=== PATIENT | male | born 1950 | race Caucasian/White ===

== ENCOUNTER → 2019-02-16 | Outpatient (CLI) | payer OTHER | LOC: LABWHC1 07:27 | PROVIDERS: ATTEND Physical Medicine & Rehabilitation | DX: Z01.812 Encounter for preprocedural laboratory examination (principal); N28.9 Disorder of kidney and ureter, unspecified | CPT/HCPCS: 36415; 82565; 84520 ==

== ENCOUNTER → 2020-12-10 | Outpatient (CLI) | payer OTHER ==
[2020-12-10 08:02] VITALS: BP 192/82; PULSE 69; RESP 18; TEMP 97.8
--- NOTE | 2020-12-10 08:25 | P.CONS ---
History of Present Illness - Reason for Consult Consult date: 12/10/20 - Chief Complaint Lower back and legs pain - History of Present Illness This is a 70-year-old gentleman with history of low back surgeries the last one was done about 6 years ago. The patient has chronic lower back pain with radiation to the lower extremities bilaterally more on the right side than the left side down to the feet bilaterally. He also occasionally. Tingling in both feet. The pain occasionally wakes him up at night but he denies any weight loss. He also denies any bowel or bladder dysfunction or any weakness in the lower extremities. Toes his pain as deep in quality. His back pain is more intense than his legs pain. The patient uses [id number] medications for his pain and marijuana at night to help him sleep. He used to be on morphine previously however he stopped using opioids. He also stopped using Neurontin. The patient used to get back injections by Dr. Cheung. The injections he was getting according to his records from Dr. Cheung's office include transforaminal epidural steroid injection at right L3 and left L2 at the same time in one session. The patient is retired and he lives with his . Past Medical History Past Medical History: Hypertension, Sleep Apnea/CPAP/BIPAP Additional Past Medical History / Comment(s): LOW BACK PAIN WITH RADIATION TO LEGS & FEET, HX OF SLEEP APNEA (SURGERY) History of Any Multi-Drug Resistant Organisms: None Reported Past Surgical History: Back Surgery, Orthopedic Surgery Additional Past Surgical History / Comment(s): ARTHROSCOPY KNEE, SLEEP APNEA SURGERY, BACK SURGERY X4 (2X @[facility], & 2X AT [facility]) Past Anesthesia/Blood Transfusion Reactions: No Reported Reaction Past Psychological History: No Psychological Hx Reported Smoking Status: Former smoker Past Alcohol Use History: None Reported Past Drug Use History: Marijuana Additional Drug Use History / Comment(s): SMOKES MARIJUANA AT FOR PAIN . - Past Family History Sister(s) Family Medical History: Cancer Medications and Allergies Home Medications Medication Instructions Recorded Confirmed Type Nabumetone [Relafen] 1,000 mg PO BID 12/03/20 12/10/20 History amLODIPine BESYLATE 5 mg PO DAILY 12/03/20 12/10/20 History atenoloL [Atenolol] 25 mg PO DAILY 12/03/20 12/10/20 History Allergies Allergy/AdvReac Type Severity Reaction Status Date / Time No Known Allergies Allergy Verified 12/03/20 15:06 Physical Exam Vitals: Vital Signs Temp Pulse Resp BP Pulse Ox 12/10/20 07:57 97.8 F 69 18 192/82 99 - Constitutional General appearance: average body habitus - EENT Eyes: PERRLA - Neurologic Neuro exam of the lower extremities showed normal and symmetrical muscle strength, normal and symmetrical knee reflexes, absent ankle reflexes bilaterally. Straight leg raising test negative bilaterally Kyree's test positive on the right side Positive tenderness in the lumbar paravertebral musculature around and above his previous scar tissue from back surgeries Decreased range of motion of the lumbar spine especially for flexion Internal and external rotation of the hip joints did not elicit any pain. Neurologic: CNII-XII intact - Psychiatric Psychiatric: A&O x's 3, appropriate affect, intact judgment & insight Results Results: His last lumbar spine MRI which was done in 2019 showed spondylolisthesis at L2- 3 and L4 5 plus central canal stenosis and possible compression of left L3 nerve root. Assessment and Plan Plan: This is a 70-year-old gentleman with history of chronic lower back pain with radiation to the lower extremity down to the feet. The patient had 4 back surgeries. The following are possible diagnoses: Lumbar postlaminectomy syndrome Lumbar DDD Lumbar stenosis Occasional marijuana use The patient used to get transforaminal epidural steroid injection bilaterally by Dr. Cheung and he used to get very good response to these injections. I will schedule the patient to have transforaminal epidural steroid injection at the right L3 and left L2 transforaminal epidurals which corresponds to the right L3 4 and the left L2-L3 levels. The procedure was explained to the patient and his questions were answered. I asked her to do caudal epidural steroid injection to the patient however he preferred to do the same injections that he used to get from Dr. Skye coronel of their proved results. I thank you for the referral
== END | disposition home or self-care (01) ==
LOC: PNWHC3 07:47
PROVIDERS: ATTEND Anesthesiology
DX: M48.061 Spinal stenosis, lumbar region without neurogenic claudication (principal); M51.36 Other intervertebral disc degeneration, lumbar region; M96.1 Postlaminectomy syndrome, not elsewhere classified; F12.90 Cannabis use, unspecified, uncomplicated; Z79.1 Long term (current) use of non-steroidal anti-inflammatories (NSAID); Z79.899 Other long term (current) drug therapy; Z87.891 Personal history of nicotine dependence
CPT/HCPCS: 99202

== ENCOUNTER 2020-12-27 07:01 | Day surgery (SDC) | payer OTHER ==
[2020-12-25 09:06] VITALS: BMI 28.3
[2020-12-27 07:26] VITALS: TEMP 97.5
[2020-12-27] MEDS ORDERED: LIDOCAINE 1% (10MG/ML) FOR IV START IV ONE (07:29)
[2020-12-27] MEDS ORDERED: LACTATED RINGERS 1,000 ML IV SCH (07:30)
[2020-12-27] MEDS ORDERED: DEXAMETHASONE SOD PHOSPHATE 10 MG/ML 1 ML VIAL ONE (07:31)
[2020-12-27] MEDS ORDERED: MIDAZOLAM 2 MG/2 ML VIAL ONE (07:31)
[2020-12-27] MEDS ORDERED: fentaNYL (PF) 50 MCG/ML 2 ML AMP ONE (07:31)
[2020-12-27] MEDS ORDERED: IOPAMIDOL M200 10 ML VIAL ONE (07:31)
--- NOTE | 2020-12-27 07:47 | P.PCN ---
Date of Procedure: 12/27/20 Description of Procedure: PREOPERATIVE DIAGNOSIS: Lumbar radiculopathy POSTOPERATIVE DIAGNOSIS: Lumbar radiculopathy PROCEDURE 1. Transforaminal epidural steroid injection under fluoroscopic guidance at the right L3 4, left L2-3 2. Lumbar epidurogram IMAGING Fluoroscopy was used, images where saved to the medical record ANESTHESIA: Local with 1% lidocaine 5 ml ; 2 mg of Versed 100 g of fentanyl PROCEDURE DESCRIPTION / TECHNIQUE: The patient was seen and identified in the preoperative area. Risks, benefits, complications, and alternatives were discussed with the patient. The patient agreed to proceed with the procedure and signed the consent, vital signs were stable prior to the procedure. Patient was taken to the OR and time out was completed. The patient was placed in the prone position on procedure table and a pillow was placed under the abdomen to reduce lumbar lordosis. The lumbosacral area was prepped and draped in the usual sterile fashion. Vital signs were closely monitored during the procedure. Conscious sedation was used. Using oblique fluoroscopy, the chin of the "Juan Daniel dog" at the pedicle and the skin and deeper tissues just below was localized with 1% lidocaine. Subsequently, a 22-gauge 3.5-inch spinal needle was advanced under a tunneled view fluoroscopic guidance just underneath the chin of the "Juan Daniel dog". Under lateral fluoroscopy, the needle was then advanced to the posterior border interforaminal space. After negative aspiration of CSF and blood and with no paresthesias, 1 mL of Omnipaque-240 contrast dye was injected excellent epidurogram. Subsequently, a solution totalling 2ml of dexamethasone and PFNS was injected after negative aspiration (total of 10mg of dexamethasone was used). The needle was removed intact. COMPLICATIONS: None DISPOSITION: The patient was placed in a supine position and transferred to the recovery area in a stable condition for observation. There was no evidence of lower extremity motor or sensory deficit after the procedure. Patient was discharged from the recovery room after meeting discharge criteria. Home discharge instructions were given to the patient by the staff. The patient was reexamined prior to discharge. Follow up as directed.
[2020-12-27] MEDS ORDERED: IV FLUID CONTINUATION 1,000 ML IV ONE (07:53)
--- NOTE | 2020-12-27 08:00 | FL ---
Fluoroscopy History: BILATERAL TRANSFORAMINAL EPIDURAL STEROID INJ 7 SE FL, 2 FILMS SCANNED
[2020-12-27 08:17] VITALS: BP 146/77; PULSE 77; RESP 20
== END 2020-12-27 08:18 | disposition home or self-care (01) ==
LOC: ORPAIN 07:01
PROVIDERS: ATTEND Hospitalist
DX: M54.16 Radiculopathy, lumbar region (principal)
CPT/HCPCS: 64483; 64484